=== PATIENT | male | born 1950 | race Caucasian/White ===

== ENCOUNTER 2017-04-10 18:42 | Inpatient (IN) | payer MEDICARE, OTHER ==
[~2017-04-10] VITALS: Ht 182.9 cm; Wt 83.9 kg
[2017-04-10] MEDS ORDERED: PANT40TA2 PO (18:53)
[2017-04-10] MEDS ORDERED: DOCU100C36 PO (18:53)
[2017-04-10] MEDS ORDERED: LEVO25TA9 PO (18:53)
[2017-04-10] MEDS ORDERED: PRAZ5CAP2 PO (18:53)
[2017-04-10] MEDS ORDERED: LEVE500T20 PO ×2 (18:53)
[2017-04-10] MEDS ORDERED: FLUO-120 PO (18:53)
[2017-04-10] MEDS ORDERED: QUET400T PO (18:53)
[2017-04-10] MEDS ORDERED: DONE10TA44 PO (18:53)
[2017-04-10] MEDS ORDERED: TOLT4CAP PO (18:53)
[2017-04-10] MEDS ORDERED: TRAZ-147 PO (18:53)
[2017-04-10] MEDS ORDERED: SIMV40TA5 PO (18:53)
--- NOTE | 2017-04-10 19:20 | NUR ---
Received report, assumed care of pt at this time. Pt ambulated to br with steady gait, one person assist. Pt resting in position of comfort for self. Medical clearance pending prior to admission to [facility]. Pt calm and cooperative at this time.
--- NOTE | 2017-04-10 20:45 | NUR ---
Pt resting in position of comfort for self. Resp even and unlabored. Pt calm and cooperative at this time.
--- NOTE | 2017-04-10 22:20 | NUR ---
Pt c/o headache, requesting tylenol. Dr. Kimball notified, awaiting further orders.
[2017-04-10] MEDS ORDERED: ACETAMINOPHEN ES 500 MG TABLET PO ONE (22:30)
--- NOTE | 2017-04-10 22:39 | NUR ---
Attempted to call report, receiving floor unable to accept at this time. Awaiting a call back
[2017-04-10] MEDS ORDERED: ACETAMINOPHEN ES 500 MG TABLET ONE (22:51)
[2017-04-10] MEDS ORDERED: MAGNESIUM HYDROXIDE 30 ML LIQUID UDC PO PRN (23:00)
[2017-04-10] MEDS ORDERED: MAG HYDROX/AL HYDROX/SIMETH 30 ML LIQUID UDC PO PRN (23:00)
--- NOTE | 2017-04-10 23:00 | NUR ---
Report called to Andrea. Preparing to transfer pt to the floor.
[2017-04-10 23:15] VITALS: BP 99/56
[2017-04-11] MEDS ORDERED: ZOLPIDEM 5 MG TABLET PO PRN
[2017-04-11] MEDS: ACETAMINOPHEN 325 MG TABLET PO PRN (00:36)
--- NOTE | 2017-04-11 01:00 | NUR ---
received to care, on a 72 hour hold, for danger to self, from the emergency room, a transfer from [facility], in [place]. according to the chart, he lives with his daughter. he attempted suicide by drinking 2 oz. of gun cleaning solvent. when evaluated by the crisis team, he stated, " it was a mistake. i should heve drank more. i want to " upon arrival, he continued to state he wanted to , but verbally contracted for safety. he was cooperative with admission. stated he has had PTSD, ever since he served in [place], and had a long history of mental illness, but never tried to hurt himself, before. he was given PRN ambien at 0036, and, as of 0100, he appears to be asleep. no distress noted. will continue to monitor closely
[2017-04-11] MEDS: PANTOPRAZOLE SODIUM 40 MG TABLET.DR PO SCH ×2 (06:44→17:48)
[2017-04-11] MEDS: LEVOTHYROXINE SODIUM 25 MCG TABLET PO SCH (06:45)
[2017-04-11 07:47] VITALS: BP 123/75
[2017-04-11] MEDS: LEVETIRACETAM 500 MG TABLET PO SCH ×2 (08:36→18:00)
[2017-04-11] MEDS: LORAZEPAM 1 MG TABLET PO PRN (08:40)
[2017-04-11] MEDS ORDERED: FLUOXETINE HCL 20 MG CAPSULE PO SCH (09:00)
[2017-04-11 15:01] VITALS: BP 110/77
--- NOTE | 2017-04-11 15:40 | NUR ---
Gps.Collision Technician- Patients' daughter called , surprised theat patient was taken all the way here from [facility], ,claimed [facility] informed no K9 Handler this weekend, if needed to talk to someone , will call Nursing Elevator Adjuster, daughter was able to talked to the patient, after , calmer tone of voice.
[2017-04-11] MEDS: DONEPEZIL 10 MG TABLET PO SCH (17:47)
[2017-04-11] MEDS: DOCUSATE SODIUM 250 MG CAPSULE PO SCH (17:51)
[2017-04-11] MEDS ORDERED: DONEPEZIL 10 MG TABLET PO SCH (18:00)
--- NOTE | 2017-04-11 18:16 | NUR ---
Gps/Director Of Quality Control- Patient verbalized that we are not giving any medications for his PTSD., claimed he talked to the Psychiatrist for few minutes. Isolative, stayed in his room most of the afternoon, monitored needs, reviewed safety.Compliant with his pm medications.
[2017-04-11 19:46] VITALS: BP 124/77
[2017-04-11] MEDS: TOLTERODINE LA 2 MG CAP.SR.24H PO SCH (20:09)
[2017-04-11] MEDS: QUETIAPINE FUMARATE 200 MG TABLET PO SCH (20:10)
[2017-04-11] MEDS: SIMVASTATIN 40 MG TABLET PO SCH (20:10)
[2017-04-11] MEDS: TRAZODONE 100 MG TABLET PO SCH (20:10)
[2017-04-11] MEDS ORDERED: PRAZOSIN HCL 15 MG PO SCH (21:00)
[2017-04-11] MEDS ORDERED: TRAZODONE 100 MG TABLET PO SCH (21:00)
[2017-04-11] MEDS ORDERED: Medication Not On Formulary EA (Quetiapine Fumarate (Seroquel) 800 MG) PO SCH (21:00)
--- NOTE | 2017-04-12 05:30 | NUR ---
Patient slept 10 hours this shift. No behavioral issues. Med compliant. No acute distress noted. Safety and comfort measures maintained t/o shift. All meds given as ordered. All needs met.
[2017-04-12] MEDS: LEVOTHYROXINE SODIUM 25 MCG TABLET PO SCH (06:42)
[2017-04-12] MEDS: PANTOPRAZOLE SODIUM 40 MG TABLET.DR PO SCH ×2 (06:42→17:33)
[2017-04-12 07:20] LABS: CREATININE 0.9 mg/dL (0.6-1.3); POTASSIUM 3.7 mmol/L (3.5-5.1)
[2017-04-12 07:28] LABS: BASOPHILS % (AUTO) 0.5 % (0.0-2.0); EOSINOPHILS # (AUTO) 0.1 K/uL (0.0-0.7); EOSINOPHILS % (AUTO) 1.8 % (0.0-7.0); HEMATOCRIT 40.6 % (36.7-47.1); HEMOGLOBIN 13.5 g/dL (12.5-16.3); LYMPHOCYTES # (AUTO) 2.1 K/uL (20.0-40.0); LYMPHOCYTES % (AUTO) 39.9 % (20.5-51.5); MEAN CORPUSCULAR HEMOGLOBIN 29.1 uug (23.8-33.4); MEAN CORPUSCULAR HGB CONC 33 g/dL (32.5-36.3); MEAN CORPUSCULAR VOLUME 87.8 fL (73.0-96.2); MONOCYTES # (AUTO) 0.5 K/uL (2.0-10.0); NEUTROPHILS # (AUTO) 2.5 K/uL (1.8-8.9); NEUTROPHILS % (AUTO) 48.8 % (38.5-71.5); PLATELET COUNT (AUTO) 109 K/uL (152-348); RED BLOOD CELL COUNT(AUTO) 4.63 MIL/uL (4.06-5.63); WHITE BLOOD COUNT (AUTO) 5.2 K/uL (3.6-10.2)
[2017-04-12 07:30] VITALS: BP 112/78
[2017-04-12] MEDS: VENLAFAXINE XR 37.5 MG CAP.SR.24H PO SCH (08:32)
[2017-04-12] MEDS: LEVETIRACETAM 500 MG TABLET PO SCH ×2 (08:32→17:34)
[2017-04-12 15:35] VITALS: BP 114/70
[2017-04-12] MEDS: DOCUSATE SODIUM 250 MG CAPSULE PO SCH (17:33)
[2017-04-12] MEDS: DONEPEZIL 10 MG TABLET PO SCH (17:34)
[2017-04-12 19:35] VITALS: BP 105/74
[2017-04-12] MEDS: TRAZODONE 100 MG TABLET PO SCH (20:36)
[2017-04-12] MEDS: SIMVASTATIN 40 MG TABLET PO SCH (20:36)
[2017-04-12] MEDS: QUETIAPINE FUMARATE 200 MG TABLET PO SCH (20:37)
[2017-04-12] MEDS: TOLTERODINE LA 2 MG CAP.SR.24H PO SCH (20:37)
[2017-04-12] MEDS: ACETAMINOPHEN 325 MG TABLET PO PRN (20:41)
--- NOTE | 2017-04-12 21:41 | NUR ---
Pt C/O 08/16 (B) FOOT PAIN, TYLENOL 650mg ADMINISTERED WITH GOOD EFFECT.
[2017-04-13] MEDS: LEVOTHYROXINE SODIUM 25 MCG TABLET PO SCH (06:04)
[2017-04-13] MEDS: PANTOPRAZOLE SODIUM 40 MG TABLET.DR PO SCH ×2 (06:35→17:21)
[2017-04-13 07:30] VITALS: BP 126/75
[2017-04-13] MEDS: VENLAFAXINE XR 37.5 MG CAP.SR.24H PO SCH (08:35)
[2017-04-13] MEDS: LEVETIRACETAM 500 MG TABLET PO SCH ×2 (08:35→17:21)
--- NOTE | 2017-04-13 14:58 | NUR ---
Initial DC Plan: Patient currently lives at home with his daughter [[place] [address]; [phone]]. SW will follow up with MD, patient, and patient's daughter/MONICA Guerrero [[phone]] to discuss most appropriate discharge plans. SW will form a safe and proper discharge.
--- NOTE | 2017-04-13 15:06 | NUR ---
Firearms Reporting: OBDULIO faxed Mental Health Report to [facility] on 04/13.
[2017-04-13] MEDS: DOCUSATE SODIUM 250 MG CAPSULE PO SCH (17:21)
[2017-04-13] MEDS: DONEPEZIL 10 MG TABLET PO SCH (17:21)
[2017-04-13 17:22] VITALS: BP 92/70
[2017-04-13] MEDS: ACETAMINOPHEN 325 MG TABLET PO PRN (19:58)
[2017-04-13] MEDS: LORAZEPAM 1 MG TABLET PO PRN (19:58)
[2017-04-13 20:06] VITALS: BP 96/74
[2017-04-13] MEDS: HYDROCODONE/APAP 10-325 MG TABLET PO PRN (20:49)
[2017-04-13] MEDS: GABAPENTIN 300 MG CAPSULE PO SCH (20:49)
[2017-04-13] MEDS: SIMVASTATIN 40 MG TABLET PO SCH (20:50)
[2017-04-13] MEDS: TOLTERODINE LA 2 MG CAP.SR.24H PO SCH (20:50)
[2017-04-13] MEDS: TRAZODONE 100 MG TABLET PO SCH (21:55)
[2017-04-13] MEDS: QUETIAPINE FUMARATE 200 MG TABLET PO SCH (21:55)
--- NOTE | 2017-04-14 00:50 | NUR ---
RECEIVED Pt IN BED CRYING AND C/O EXTREME 12/16 NEUROPATHIC FOOT PAIN. ATIVAN 1mg AND TYLENOL 650mg ADMINISTERED WITH NO EFFECT. HAMMERER HELPER ASHLEY NOTIFIED OF SITUATION, NORCO AND NEURONTIN 300mg ORDERED AND ADMINISTERED WITH GOOD EFFECT. Pt REMAINS SUICIDAL, STATES HE "THINKS ABOUT IT EVERY DAY, AND WILL TRY EVERY DAY UNTIL I ." Pt DOES CFS INSIDE THE HOSPITAL, BUT IS UNRELIABLE, AND DOES NOT CONTRACT FOR SAFETY OUTSIDE THE HOSPITAL. DENIES AH/VH. ISOLATIVE, RECLUSIVE, DEPRESSED, HELPLESS, AND HOPELESS. EMOTIONAL SUPPORT PROVIDED. EXHIBITS BLUNTED AFFECT AND PRESSURED SPEECH. VS STABLE.
[2017-04-14] MEDS: LEVOTHYROXINE SODIUM 25 MCG TABLET PO SCH (06:18)
--- NOTE | 2017-04-14 06:18 | NUR ---
PHARMACY NOTE: UNABLE TO SCAN [employer], UNKNOWN ND NUMBER.
[2017-04-14] MEDS: PANTOPRAZOLE SODIUM 40 MG TABLET.DR PO SCH ×2 (06:37→16:58)
[2017-04-14 07:30] VITALS: BP 101/73
[2017-04-14] MEDS: VENLAFAXINE XR 37.5 MG CAP.SR.24H PO SCH (08:36)
[2017-04-14] MEDS: LEVETIRACETAM 500 MG TABLET PO SCH ×2 (08:37→17:50)
[2017-04-14] MEDS: DOCUSATE SODIUM 250 MG CAPSULE PO SCH (17:50)
[2017-04-14] MEDS: DONEPEZIL 10 MG TABLET PO SCH (17:50)
[2017-04-14] MEDS: HYDROCODONE/APAP 10-325 MG TABLET PO PRN (18:40)
[2017-04-14 20:00] VITALS: BP_SYST 100; BP_SYST 105; BP_DIAS 52; BP_DIAS 73
[2017-04-14] MEDS: QUETIAPINE FUMARATE 200 MG TABLET PO SCH (20:37)
[2017-04-14] MEDS: SIMVASTATIN 40 MG TABLET PO SCH (20:38)
[2017-04-14] MEDS: GABAPENTIN 300 MG CAPSULE PO SCH (20:38)
[2017-04-14] MEDS: TRAZODONE 100 MG TABLET PO SCH (20:38)
[2017-04-14] MEDS: TOLTERODINE LA 2 MG CAP.SR.24H PO SCH (20:39)
--- NOTE | 2017-04-14 22:00 | NUR ---
received to care, lying in bed, isolative, but pleasant upon approach. compliant with medications, and staff direction. no interactions with peers, noted. denies si, but states he would try to hurt himself, if he were not in the hosptal. as of 2199, he appears to be asleep. room close to nurses statiion. monitored closely for safety. no distress noted. will continue to mionitor closely.
[2017-04-15] MEDS: PANTOPRAZOLE SODIUM 40 MG TABLET.DR PO SCH ×2 (06:21→16:55)
[2017-04-15] MEDS: LEVOTHYROXINE SODIUM 25 MCG TABLET PO SCH (06:21)
--- NOTE | 2017-04-15 06:44 | NUR ---
slept well last night. no distress noted.
[2017-04-15 08:00] VITALS: BP 112/70
[2017-04-15] MEDS: VENLAFAXINE XR 75 MG CAP.SR.24H PO SCH (08:56)
[2017-04-15] MEDS: LEVETIRACETAM 500 MG TABLET PO SCH ×2 (08:57→17:00)
[2017-04-15] MEDS ORDERED: VENLAFAXINE XR 37.5 MG CAP.SR.24H PO SCH (09:00)
[2017-04-15 16:00] VITALS: BP 105/65
[2017-04-15] MEDS: DONEPEZIL 10 MG TABLET PO SCH (17:00)
[2017-04-15] MEDS: DOCUSATE SODIUM 250 MG CAPSULE PO SCH (17:06)
[2017-04-15] MEDS: HYDROCODONE/APAP 10-325 MG TABLET PO PRN ×2 (17:07→23:18)
--- NOTE | 2017-04-15 18:23 | NUR ---
IN BED ALL DAY. HAS NOT LEFT ROOM. PT IS EATING, NO SIGNS OF RESPIRATORY DISTRESS. PT DENIES SI AT THIS TIME. PT CONTRACTS FOR SAFETY INSIDE THE HOSPITAL. CONTINUE TO MONITOR PT.
[2017-04-15 20:51] VITALS: BP 115/71
[2017-04-15] MEDS: TRAZODONE 100 MG TABLET PO SCH (20:51)
[2017-04-15] MEDS: TOLTERODINE LA 2 MG CAP.SR.24H PO SCH (20:52)
[2017-04-15] MEDS: GABAPENTIN 300 MG CAPSULE PO SCH (20:52)
[2017-04-15] MEDS: SIMVASTATIN 40 MG TABLET PO SCH (20:53)
[2017-04-15] MEDS: QUETIAPINE FUMARATE 200 MG TABLET PO SCH (20:55)
--- NOTE | 2017-04-15 22:00 | NUR ---
received to care, lying in bed, isolative, but pleasant upon approach. compliant with medications, and staff direction. no interactions with peers, noted. denies si, but still states he would try to hurt himself, if he were not in the hosptal. as of 2199, he appears to be asleep. room close to nurses statiion. monitored closely for safety. no distress noted. will continue to monitor closely.
--- NOTE | 2017-04-15 23:18 | NUR ---
pt is now awake. PRN norco was given for bilateral foot pain, 8/10.
--- NOTE | 2017-04-15 23:50 | NUR ---
appears to be asleep. no distress noted.
[2017-04-16] MEDS: LEVOTHYROXINE SODIUM 25 MCG TABLET PO SCH (06:00)
[2017-04-16] MEDS: PANTOPRAZOLE SODIUM 40 MG TABLET.DR PO SCH ×2 (06:01→17:52)
--- NOTE | 2017-04-16 06:01 | NUR ---
refused AM synthroid, and protonix. states he was given it already, this morning. reality orientation attempted, but he remains fixed in his beliefs.
[2017-04-16 07:30] VITALS: BP 129/63
[2017-04-16] MEDS: LEVETIRACETAM 500 MG TABLET PO SCH ×2 (08:54→17:52)
[2017-04-16] MEDS: VENLAFAXINE XR 75 MG CAP.SR.24H PO SCH (08:54)
--- NOTE | 2017-04-16 09:47 | NUR ---
Discharge Planning Note: Per request of patient's daughter/MONICA Guerrero [[phone]], OBDULIO faxed referrals to SNFs in the [facility]. OBDULIO faxed the following facilities: [facility] [[phone]], [facility] [[phone]], [facility] [[phone]], [facility] [[phone]], and [facility] [[phone]]. OBDULIO also faxed [facility] []. So far, [facility] and [facility] have denied the patient. Awaiting to hear from other facilities. OBDULIO will continue to follow up.
[2017-04-16 16:28] VITALS: BP 109/71
[2017-04-16] MEDS: DONEPEZIL 10 MG TABLET PO SCH (17:52)
[2017-04-16] MEDS: DOCUSATE SODIUM 250 MG CAPSULE PO SCH (17:52)
[2017-04-16] MEDS: HYDROCODONE/APAP 10-325 MG TABLET PO PRN (20:41)
[2017-04-16] MEDS: GABAPENTIN 300 MG CAPSULE PO SCH (20:42)
[2017-04-16] MEDS: QUETIAPINE FUMARATE 200 MG TABLET PO SCH (20:42)
[2017-04-16] MEDS: SIMVASTATIN 40 MG TABLET PO SCH (20:42)
[2017-04-16] MEDS: TRAZODONE 100 MG TABLET PO SCH (20:42)
[2017-04-16] MEDS: TOLTERODINE LA 2 MG CAP.SR.24H PO SCH (20:43)
[2017-04-16 21:14] VITALS: BP 11/71
--- NOTE | 2017-04-16 22:00 | NUR ---
received to care, lying in bed, isolative, but pleasant upon approach. compliant with medications, and staff direction. PRN norco was given at 2040, for bilateral foot pain, 8/10, which was effective, by 2129. no interactions with peers, noted. denies si, but still states he would try to hurt himself, if he were not in the hosptal. as of 2199, he remains awake. room close to nurses statiion. monitored closely for safety. no distress noted. will continue to monitor closely.
[2017-04-16] MEDS: LORAZEPAM 1 MG TABLET PO PRN (22:20)
--- NOTE | 2017-04-16 22:20 | NUR ---
PRN ativan given for anxiety.
--- NOTE | 2017-04-16 23:00 | NUR ---
appears to be asleep. no distress noted.
[2017-04-17] MEDS: PANTOPRAZOLE SODIUM 40 MG TABLET.DR PO SCH ×2 (05:40→16:33)
[2017-04-17] MEDS: LEVOTHYROXINE SODIUM 25 MCG TABLET PO SCH (05:40)
[2017-04-17] MEDS: HYDROCODONE/APAP 10-325 MG TABLET PO PRN ×3 (05:51→20:43)
[2017-04-17] MEDS: LEVETIRACETAM 500 MG TABLET PO SCH ×2 (08:35→18:15)
[2017-04-17] MEDS: VENLAFAXINE XR 75 MG CAP.SR.24H PO SCH (08:35)
--- NOTE | 2017-04-17 16:23 | NUR ---
Gps/Supervisor Meter Shop- remains in bed, needed prompting to initiate simple tasks , sleeping on and off in bed, refused to attend his group therapy, flat affect , but had been compliant with his routine meds. Complained of pain on his feet, prn [place] 1 tab. given po with adequate relief.
[2017-04-17] MEDS: DOCUSATE SODIUM 250 MG CAPSULE PO SCH (18:00)
[2017-04-17] MEDS: DONEPEZIL 10 MG TABLET PO SCH (18:15)
[2017-04-17] MEDS: TOLTERODINE LA 2 MG CAP.SR.24H PO SCH (20:44)
[2017-04-17] MEDS: GABAPENTIN 300 MG CAPSULE PO SCH (20:44)
[2017-04-17] MEDS: SIMVASTATIN 40 MG TABLET PO SCH (20:44)
[2017-04-17] MEDS: QUETIAPINE FUMARATE 200 MG TABLET PO SCH (20:44)
[2017-04-17 22:03] VITALS: BP 114/77
--- NOTE | 2017-04-18 05:42 | NUR ---
Patient slept 9 hours. No acute distress noted. No behavioral issues. Med compliant. Vital signs stable. Safety and comfort measures maintained t/o shift.
[2017-04-18] MEDS: PANTOPRAZOLE SODIUM 40 MG TABLET.DR PO SCH ×2 (06:34→17:27)
[2017-04-18] MEDS: LEVOTHYROXINE SODIUM 25 MCG TABLET PO SCH (06:34)
[2017-04-18 07:30] VITALS: BP 109/64
[2017-04-18] MEDS: VENLAFAXINE XR 75 MG CAP.SR.24H PO SCH (08:39)
[2017-04-18] MEDS: LEVETIRACETAM 500 MG TABLET PO SCH ×2 (08:43→17:34)
[2017-04-18] MEDS: HYDROCODONE/APAP 10-325 MG TABLET PO PRN ×2 (09:02→16:49)
[2017-04-18 15:00] VITALS: BP 99/50
[2017-04-18] MEDS: DONEPEZIL 10 MG TABLET PO SCH (17:27)
[2017-04-18] MEDS: DOCUSATE SODIUM 250 MG CAPSULE PO SCH (17:27)
[2017-04-18 20:21] VITALS: BP 130/81
[2017-04-18] MEDS: SIMVASTATIN 40 MG TABLET PO SCH (20:40)
[2017-04-18] MEDS: GABAPENTIN 300 MG CAPSULE PO SCH (20:40)
[2017-04-18] MEDS: QUETIAPINE FUMARATE 200 MG TABLET PO SCH (20:40)
[2017-04-18] MEDS: TOLTERODINE LA 2 MG CAP.SR.24H PO SCH (20:41)
[2017-04-18] MEDS: LORAZEPAM 1 MG TABLET PO PRN (23:04)
[2017-04-19] MEDS: LEVOTHYROXINE SODIUM 25 MCG TABLET PO SCH (07:17)
[2017-04-19] MEDS: PANTOPRAZOLE SODIUM 40 MG TABLET.DR PO SCH ×2 (07:17→16:30)
[2017-04-19 07:30] VITALS: BP 114/78
[2017-04-19] MEDS: VENLAFAXINE XR 75 MG CAP.SR.24H PO SCH (08:07)
[2017-04-19] MEDS: LEVETIRACETAM 500 MG TABLET PO SCH ×2 (08:08→17:23)
[2017-04-19 16:32] VITALS: BP 120/87
[2017-04-19] MEDS: DONEPEZIL 10 MG TABLET PO SCH (17:23)
[2017-04-19] MEDS: DOCUSATE SODIUM 250 MG CAPSULE PO SCH (17:23)
[2017-04-19] MEDS: SIMVASTATIN 40 MG TABLET PO SCH (20:55)
[2017-04-19] MEDS: QUETIAPINE FUMARATE 200 MG TABLET PO SCH (20:56)
[2017-04-19] MEDS: GABAPENTIN 300 MG CAPSULE PO SCH (20:56)
[2017-04-19] MEDS: HYDROCODONE/APAP 10-325 MG TABLET PO PRN (20:57)
[2017-04-19] MEDS: TOLTERODINE LA 2 MG CAP.SR.24H PO SCH (20:59)
[2017-04-19 21:00] VITALS: BP 124/80
[2017-04-20] MEDS: PANTOPRAZOLE SODIUM 40 MG TABLET.DR PO SCH ×2 (06:40→17:19)
[2017-04-20] MEDS: LEVOTHYROXINE SODIUM 25 MCG TABLET PO SCH (06:41)
[2017-04-20] MEDS: HYDROCODONE/APAP 10-325 MG TABLET PO PRN ×2 (06:51→21:13)
[2017-04-20 07:30] VITALS: BP 103/74
[2017-04-20] MEDS: LEVETIRACETAM 500 MG TABLET PO SCH ×2 (08:52→17:18)
[2017-04-20] MEDS ORDERED: VENLAFAXINE XR 75 MG CAP.SR.24H PO SCH (09:00)
[2017-04-20] MEDS: VENLAFAXINE XR 37.5 MG CAP.SR.24H PO SCH (09:43)
[2017-04-20] MEDS: DONEPEZIL 10 MG TABLET PO SCH (17:18)
[2017-04-20] MEDS: DOCUSATE SODIUM 250 MG CAPSULE PO SCH (17:19)
[2017-04-20 17:28] VITALS: BP 119/74
[2017-04-20 19:53] VITALS: BP 114/75
[2017-04-20] MEDS: TOLTERODINE LA 2 MG CAP.SR.24H PO SCH (20:49)
[2017-04-20] MEDS: QUETIAPINE FUMARATE 200 MG TABLET PO SCH (20:49)
[2017-04-20] MEDS: SIMVASTATIN 40 MG TABLET PO SCH (20:49)
[2017-04-20] MEDS: GABAPENTIN 300 MG CAPSULE PO SCH (20:49)
[2017-04-21] MEDS: PANTOPRAZOLE SODIUM 40 MG TABLET.DR PO SCH ×2 (06:46→17:21)
[2017-04-21] MEDS: LEVOTHYROXINE SODIUM 25 MCG TABLET PO SCH (06:47)
[2017-04-21 07:49] VITALS: BP 118/72
[2017-04-21] MEDS: LEVETIRACETAM 500 MG TABLET PO SCH ×2 (10:20→18:11)
[2017-04-21] MEDS: VENLAFAXINE XR 37.5 MG CAP.SR.24H PO SCH (10:20)
--- NOTE | 2017-04-21 14:20 | NUR ---
Discharge Planning Note: OBDULIO spoke with Dariana at [facility] [ ] who stated they do not have any beds available. Currently, [facility] is the only accepting facility for patient. OBDULIO told this information to patient's daughter/MONICA Guerrero [[phone]] on 04/17 and again today 04/21. Patient's daughter stated she will call OBDULIO back. OBDULIO will follow up with Yolanda.
[2017-04-21] MEDS ORDERED: PROCHLORPERAZINE MALEATE 5 MG TABLET PO PRN (14:30)
[2017-04-21] MEDS: HYDROCODONE/APAP 10-325 MG TABLET PO PRN ×2 (15:02→21:07)
--- NOTE | 2017-04-21 15:16 | NUR ---
Discharge Planning Note: OBDULIO spoke with Bianka at the [facility] [[phone]] who recommended [facility] and [facility]. OBDULIO spoke with Brittnee at [facility] [ ] and Katlyn at [facility] [ ] who stated they would not be able to accept patient due to his history of SI. OBDULIO left a voicemail for patient's daughter Yolanda [[phone]].
[2017-04-21] MEDS: ACETAMINOPHEN 325 MG TABLET PO PRN (15:29)
[2017-04-21 16:45] VITALS: BP 126/76
[2017-04-21] MEDS: DOCUSATE SODIUM 250 MG CAPSULE PO SCH (18:10)
[2017-04-21] MEDS: DONEPEZIL 10 MG TABLET PO SCH (18:11)
[2017-04-21] MEDS: TOLTERODINE LA 2 MG CAP.SR.24H PO SCH (20:17)
[2017-04-21] MEDS: SIMVASTATIN 40 MG TABLET PO SCH (20:18)
[2017-04-21] MEDS: GABAPENTIN 300 MG CAPSULE PO SCH (20:18)
[2017-04-21] MEDS: QUETIAPINE FUMARATE 200 MG TABLET PO SCH (20:19)
[2017-04-21 20:51] VITALS: BP 140/78
--- NOTE | 2017-04-21 22:00 | NUR ---
received to care, lying in bed, isolative, but pleasant upon approach. compliant with medications, and staff direction. no interactions with peers, noted. denies si, but still states he would try to hurt himself, if he were not in the hosptal. PRN norco was given at 2106, for bilateral foot pain 8/10. as of 2199, he appears to be asleep. room close to nurses statiion. monitored closely for safety. no distress noted. will continue to monitor closely.
[2017-04-22] MEDS: HYDROCODONE/APAP 10-325 MG TABLET PO PRN ×3 (03:14→20:05)
[2017-04-22] MEDS: PANTOPRAZOLE SODIUM 40 MG TABLET.DR PO SCH ×2 (06:05→17:33)
[2017-04-22] MEDS: LEVOTHYROXINE SODIUM 25 MCG TABLET PO SCH (06:05)
[2017-04-22 08:00] VITALS: BP 122/77
[2017-04-22] MEDS: LEVETIRACETAM 500 MG TABLET PO SCH ×2 (08:32→17:32)
[2017-04-22] MEDS: VENLAFAXINE XR 37.5 MG CAP.SR.24H PO SCH (08:32)
--- NOTE | 2017-04-22 14:21 | NUR ---
Discharge Planning Note: Patient's daughter Yolanda [[phone]] expressed concern about being able to fill patient's prescriptions after discharge, as [facility]. OBDULIO assured Yolanda that she would contact [facility] regarding this issue. OBDULIO spoke with Bianka at the [facility] [[phone] Ex. [phone]] who informed SW to fax patient's prescriptions to the [facility]. Yolanda also spoke to the [facility] who informed her to send patient's medication list to his primary physician. OBDULIO faxed patient's med list to both the [facility] pharmacy [fax: [phone]] and [facility] primary physician Dr. De Jesus [fax: [phone]].
[2017-04-22 16:00] VITALS: BP 95/53
[2017-04-22] MEDS: DOCUSATE SODIUM 250 MG CAPSULE PO SCH (17:32)
[2017-04-22] MEDS: DONEPEZIL 10 MG TABLET PO SCH (17:32)
[2017-04-22 20:02] VITALS: BP 133/82
[2017-04-22] MEDS: TOLTERODINE LA 2 MG CAP.SR.24H PO SCH (20:05)
[2017-04-22] MEDS: SIMVASTATIN 40 MG TABLET PO SCH (20:06)
[2017-04-22] MEDS: QUETIAPINE FUMARATE 200 MG TABLET PO SCH (20:06)
[2017-04-22] MEDS: GABAPENTIN 300 MG CAPSULE PO SCH (20:07)
[2017-04-22] MEDS: CLOTRIMAZOLE 1% CREAM 30 GM TUBE TOP SCH (21:00)
--- NOTE | 2017-04-22 22:00 | NUR ---
received to care, lying in bed, isolative, but pleasant upon approach. compliant with medications, and staff direction. PRN norco was given at 2004, for bilateral foot pain, /, which was effective, by 2119. no interactions with peers, noted. denies si, but still states he would try to hurt himself, if he were not in the hosptal. as of 2199, he appears to be asleep. room close to nurses statiion. monitored closely for safety. no distress noted. will continue to monitor closely.
[2017-04-23] MEDS: HYDROCODONE/APAP 10-325 MG TABLET PO PRN (05:50)
[2017-04-23] MEDS: PANTOPRAZOLE SODIUM 40 MG TABLET.DR PO SCH ×2 (06:00→16:30)
[2017-04-23] MEDS: LEVOTHYROXINE SODIUM 25 MCG TABLET PO SCH (06:00)
[2017-04-23 07:30] VITALS: BP 101/55
[2017-04-23] MEDS: VENLAFAXINE XR 37.5 MG CAP.SR.24H PO SCH (08:28)
[2017-04-23] MEDS: LEVETIRACETAM 500 MG TABLET PO SCH ×2 (08:29→17:46)
[2017-04-23] MEDS: CLOTRIMAZOLE 1% CREAM 30 GM TUBE TOP SCH (09:42)
--- NOTE | 2017-04-23 11:38 | NUR ---
DC Note: Patient will be discharged to [facility] [[address], [place] [address]; ] via private transportation. Transportation will be provided by [facility] at 7:00pm. OBDULIO spoke with Erica at [facility] to confirm discharge plans. Patient's daughter/DPRADHA Her [[phone]] is aware and agreeable to discharge plans. Patient will follow up with Dr. Almanza (Driver Starting Gate) and Dr. Khalil (Psychiatrist).
[2017-04-23 15:00] VITALS: BP 121/78
[2017-04-23] MEDS: DOCUSATE SODIUM 250 MG CAPSULE PO SCH (17:46)
[2017-04-23] MEDS: DONEPEZIL 10 MG TABLET PO SCH (17:46)
--- NOTE | 2017-04-23 19:15 | NUR ---
14 Called report to [facility], [facility] spoke with Karla the RN gardening supervisor regarding patient diagnosis, medications to continue upon discharged- Rn verbalized understanding. 1710 Discharged patient to facility,picked up transportation stable condition.
== END 2017-04-23 19:10 | DRG 885 ==
LOC: ER 18:43 → GPS 23:03
PROVIDERS: ADMIT Psychiatry & Neurology Psychiatry; ATTEND Registered Nurse
DX: F32.3 Major depressive disorder, single episode, severe with psychotic features (principal); G40.509 Epileptic seizures related to external causes, not intractable, without status epilepticus; E03.9 Hypothyroidism, unspecified; J98.11 Atelectasis; F10.21 Alcohol dependence, in remission; F43.12 Post-traumatic stress disorder, chronic; Z79.899 Other long term (current) drug therapy; Z91.5 Personal history of self-harm; Y36.90XS War operations, unspecified, sequela; Z86.73 Personal history of transient ischemic attack (TIA), and cerebral infarction without residual deficits; Z87.820 Personal history of traumatic brain injury; K21.9 Gastro-esophageal reflux disease without esophagitis; Z87.891 Personal history of nicotine dependence
CPT/HCPCS: 36415; 71045; 84443; 85025; 93005; A4663; A9150; J8499